=== PATIENT | female | born 1970 | race Caucasian/White ===

== ENCOUNTER 2023-10-02 11:30 | Emergency (ER) | payer OTHER ==
--- NOTE | 2023-10-02 12:58 | RAD REPORT ---
EXAM DESCRIPTION: RAD - Wrist Left 3 View - 10/02/2023 12:48 pm CLINICAL HISTORY: PAIN Pain COMPARISON: No comparisons FINDINGS: No fracture or dislocation seen. No foreign body or other soft tissue abnormality. IMPRESSION: Negative examination.
--- NOTE | 2023-10-02 13:15 | EDPHYS ---
Physician Documentation [facility] Name: Tayler Ziegler Age: 52 yrs Sex: Female : 1970 Arrival Date: 10/02/2023 Time: 11:30 Bed 12 Private MD: ED Physician Rudolph Ward HPI: 10/01 13:07 This 52 yrs old Female presents to ER via Ambulatory with complaints of Fall mai Injury. 13:07 Details of fall: The patient fell from an upright position, while walking. Onset: The mai symptoms/episode began/occurred 3 day(s) ago. Associated injuries: The patient sustained left wrist, decreased range of motion, painful injury. Severity of symptoms: At their worst the symptoms were mild, moderate, in the emergency department the symptoms are unchanged. The patient has not experienced similar symptoms in the past. Historical: - Allergies: 11:47 PENICILLINS; iw 11:47 Biaxin; iw 11:47 Stadol; iw - PMHx: 11:48 breast cancer; uterine cancer; lung cancer; iw - Immunization history:: Adult Immunizations up to date. - Infectious Disease History:: Denies. - Social history:: Smoking status: . - Family history:: not pertinent. ROS: 13:07 Constitutional: Negative for fever, chills, and weight loss, Eyes: Negative for injury, mai pain, redness, and discharge, ENT: Negative for injury, pain, and discharge, Neck: Negative for injury, pain, and swelling, Cardiovascular: Negative for chest pain, palpitations, and edema, Respiratory: Negative for shortness of breath, cough, wheezing, and pleuritic chest pain, Abdomen/GI: Negative for abdominal pain, nausea, vomiting, diarrhea, and constipation, Back: Negative for injury and pain, : Negative for injury, bleeding, discharge, and swelling, Skin: Negative for injury, rash, and discoloration, Neuro: Negative for headache, weakness, numbness, tingling, and seizure, Psych: Negative for depression, anxiety, suicide ideation, homicidal ideation, and hallucinations, Allergy/Immunology: Negative for hives, rash, and allergies, Endocrine: Negative for neck swelling, polydipsia, polyuria, polyphagia, and marked weight changes, Hematologic/Lymphatic: Negative for swollen nodes, abnormal bleeding, and unusual bruising, 13:07 MS/extremity: Positive for decreased range of motion, pain, swelling, tenderness, of the left wrist, Exam: 13:07 Constitutional: This is a well developed, well nourished patient who is awake, alert, mai and in no acute distress. Head/Face: Normocephalic, atraumatic. Eyes: Pupils equal round and reactive to light, extra-ocular motions intact. Lids and lashes normal. Conjunctiva and sclera are non-icteric and not injected. Cornea within normal limits. Periorbital areas with no swelling, redness, or edema. ENT: Nares patent. No nasal discharge, no septal abnormalities noted. Tympanic membranes are normal and external auditory canals are clear. Oropharynx with no redness, swelling, or masses, exudates, or evidence of obstruction, uvula midline. Mucous membranes moist. Neck: Trachea midline, no thyromegaly or masses palpated, and no cervical lymphadenopathy. Supple, full range of motion without nuchal rigidity, or vertebral point tenderness. No Meningismus. Chest/axilla: Normal chest wall appearance and motion. Nontender with no deformity. No lesions are appreciated. Cardiovascular: Regular rate and rhythm with a normal S1 and S2. No gallops, murmurs, or rubs. Normal PMI, no JVD. No pulse deficits. Respiratory: Lungs have equal breath sounds bilaterally, clear to auscultation and percussion. No rales, rhonchi or wheezes noted. No increased work of breathing, no retractions or nasal flaring. Abdomen/GI: Soft, non-tender, with normal bowel sounds. No distension or tympany. No guarding or rebound. No evidence of tenderness throughout. Back: No spinal tenderness. No costovertebral tenderness. Full range of motion. Skin: Warm, dry with normal turgor. Normal color with no rashes, no lesions, and no evidence of cellulitis. Neuro: Awake and alert, GCS 15, oriented to person, place, time, and situation. Cranial nerves II-XII grossly intact. Motor strength 5/5 in all extremities. Sensory grossly intact. Cerebellar exam normal. Normal gait. Psych: Awake, alert, with orientation to person, place and time. Behavior, mood, and affect are within normal limits. 13:07 Musculoskeletal/extremity: Extremities: grossly normal except: noted in the left wrist: decreased ROM, pain, tenderness, Vital Signs: 11:47 BP 116 / 93; Pulse 85; Resp 16; Temp 98.2; Pulse Ox 100% on R/A; iw MDM: 11:35 Patient medically screened. mai 13:10 Differential diagnosis: contusion, fracture, sprain, strain. Data reviewed: vital mai signs, nurses notes, radiologic studies, plain films. Consideration of Admission/Observation Escalation of care including admission/observation considered. I considered the following discharge prescriptions or medication management in the emergency department Medications were administered in the Emergency Department. See MAR. Independent interpretation of the following test(s) in the Emergency Department X-Ray: My interpretation is no fracture. Test considered but Not performed: Labs: no labs. Historians other than the Patient: Family Member: family well informed. Care significantly affected by the following chronic conditions: Cancer, breast, uterine, lung. Counseling: I had a detailed discussion with the patient and/or guardian regarding the historical points, exam findings, and any diagnostic results supporting the discharge/admit diagnosis, radiology results, the need for outpatient follow up, for definitive care, a family practitioner, a orthopedic surgeon. 10/01 12:14 Order name: Wrist Left (3 View) XRAY [facility] 10/01 12:14 Order name: Ice pack; Complete Time: 12:23 [facility] 10/01 13:06 Order name: Splint - Wrist: cock up; Complete Time: 13:19 mai Administered Medications: 13:30 Drug: Ibuprofen PO 600 mg PO once Route: PO; cp4 13:30 Follow up: Response: No adverse reaction cp4 13:30 Drug: Hydrocodone-Acetaminophen PO (7.5 mg-325 mg) 1 tabs PO once Route: PO; cp4 13:30 Follow up: Response: No adverse reaction cp4 Disposition Summary: 10/02/23 13:15 Discharge Ordered Notes: Location: Home mai Problem: new mai Symptoms: have improved mai Condition: Stable mai Diagnosis - Fall on same level, unspecified mai - Sprain of radiocarpal joint of left wrist mai - Sprain of carpal joint of left wrist mai Followup: mai - With: Private Physician - When: 2 - 3 days - Reason: Recheck today's complaints, Continuance of care, Re-evaluation by your physician Followup: mai - With: Leonidas Luong MD - When: 2 - 3 days - Reason: Recheck today's complaints, Re-evaluation by your physician Discharge Instructions: - Discharge Summary Sheet mai - Wrist Pain, Adult mai - Wrist Pain, Adult, Enby-cf-Ilwi mai - Fall Prevention in the Home, Adult, [id number] mai - Wrist Sprain, Adult mai Forms: - Medication Reconciliation Form mai - Antibiotic Education mai - Prescription Opioid Use mai - Patient Portal Instructions mai - Leadership Thank You Letter [facility] Prescriptions: - diclofenac sodium 50 mg Oral tablet, delayed release (enteric coated) - take 1 tablet ORAL route every 8 hours as needed for pain; 21 tablet; Refills: mai 0, Product Selection Permitted Signatures: Dispatcher [employer] EDRudolph Santos MD MD cha Williams, Irene, RN RN Promise Frausto cp4 Corrections: (The following items were deleted from the chart) 11:48 11:47 Allergies: Tetanus Vaccines \T\ Toxoid; greg garza
--- NOTE | 2023-10-02 13:15 | ER ---
Nurse's Notes [facility] Name: Tayler Ziegler Age: 52 yrs Sex: Female : 1970 Arrival Date: 10/02/2023 Time: 11:30 Bed 12 Private MD: Diagnosis: Fall on same level, unspecified;Sprain of radiocarpal joint of left wrist;Sprain of carpal joint of left wrist Presentation: 10/01 11:46 Chief complaint: Patient states: fell with walker, ran into a curb, fell on left wrist iw , happened . 11:46 Acuity: JESSICA 4 iw 11:47 Coronavirus screen: At this time, the client does not indicate any symptoms associated iw with coronavirus-19. Ebola Screen: Patient negative for fever greater than or equal to 101.5 degrees Fahrenheit, and additional compatible Ebola Virus Disease symptoms Patient denies exposure to infectious person. Patient denies travel to an Ebola-affected area in the 21 days before illness onset. No symptoms or risks identified at this time. Initial Sepsis Screen: Does the patient meet any 2 criteria? No. Patient's initial sepsis screen is negative. Does the patient have a suspected source of infection? No. Patient's initial sepsis screen is negative. Risk Assessment: Do you want to hurt yourself or someone else? Patient reports no desire to harm self or others. Onset of symptoms was September 27, 2023. 11:47 Method Of Arrival: Ambulatory iw Historical: - Allergies: 11:47 PENICILLINS; iw 11:47 Biaxin; iw 11:47 Stadol; iw - PMHx: 11:48 breast cancer; uterine cancer; lung cancer; iw - Immunization history:: Adult Immunizations up to date. - Infectious Disease History:: Denies. - Social history:: Smoking status: . - Family history:: not pertinent. Screenin:53 [facility] ED Fall Risk Assessment (Adult) History of falling in the last 3 months, cp4 including since admission Yes- single mechanical fall (1 pt) Confusion or Disorientation No (0 pts) Intoxicated or Sedated No (0 pts) Impaired Gait No (0 pts) Mobility Assist Device Used No (0 pt) Altered Elimination No (0 pt) Score/Fall Risk Level 0 - 2 = Low Risk Oriented to surroundings, Maintained a safe environment, Assessed \T\ reinforced patient's understanding of fall precautions, Hourly rounding (assess needs \T\ fall precautionary measures) done. Abuse screen: Denies threats or abuse. Nutritional screening: No deficits noted. Tuberculosis screening: No symptoms or risk factors identified. Assessment: 11:51 General: Appears uncomfortable, Behavior is calm, cooperative, appropriate for age. cp4 11:53 Pain: Complains of pain in left wrist. cp4 Vital Signs: 11:47 BP 116 / 93; Pulse 85; Resp 16; Temp 98.2; Pulse Ox 100% on R/A; iw ED Course: 11:30 Patient arrived in ED. rg4 11:35 Rudolph Ward MD is Attending Physician. [facility] 11:47 Triage completed. 11:48 Arm band placed on. iw 11:51 Promise Ramirez is Primary Nurse. cp4 11:53 Bed in low position. Call light in reach. Side rails up X 1. Provided Education on: cp4 falls. 12:50 Wrist Left (3 View) XRAY In Process Unspecified. EDDE 13:14 Leonidas Luong MD is Referral Physician. [facility] 13:20 No provider procedures requiring assistance completed. Patient did not have IV access cp4 during this emergency room visit. Administered Medications: 13:30 Drug: Ibuprofen PO 600 mg PO once Route: PO; cp4 13:30 Follow up: Response: No adverse reaction cp4 13:30 Drug: Hydrocodone-Acetaminophen PO (7.5 mg-325 mg) 1 tabs PO once Route: PO; cp4 13:30 Follow up: Response: No adverse reaction cp4 Medication: 11:53 VIS not applicable for this client. cp4 Outcome: 13:15 Discharge ordered by . mai 13:20 Discharged to home ambulatory, cp4 13:20 Condition: stable 13:20 Discharge instructions given to patient, Instructed on discharge instructions, follow up and referral plans. Demonstrated understanding of instructions, follow-up care, 13:30 Patient left the ED. cp4 Signatures: Dispatcher [employer] Rudolph Sahni MD MD cha Williams, Irene, Ana Ellis RN rg4 Promise Ramirez cp4 Corrections: (The following items were deleted from the chart) 11:48 11:47 Allergies: Tetanus Vaccines \T\ Toxoid; [facility]
[2023-10-02] MEDS ORDERED: HYDROCODONE/APAP 7.5/325 MG TAB ONE (13:22)
[2023-10-02] MEDS ORDERED: IBUPROFEN 200 MG TAB PO ONE (13:22)
[2023-10-02 13:48] VITALS: BP 116/93; TEMP 98.2; O2SAT 100
== END 2023-10-02 13:30 | disposition home or self-care (01) ==
LOC: ER 11:30
DX: S63.522A Sprain of radiocarpal joint of left wrist, initial encounter (principal); S63.512A Sprain of carpal joint of left wrist, initial encounter; Z88.0 Allergy status to penicillin; Z88.5 Allergy status to narcotic agent; Z88.6 Allergy status to analgesic agent
CPT/HCPCS: 99283

== ENCOUNTER 2024-04-01 15:51 | Emergency (ER) | payer OTHER ==
--- OUTSIDE RECORDS SUMMARY | 2024-04-01 15:54 | XMS REPORT | Clinical Summary ---
Author Name Unknown Organization [facility] Address [address] [place] [address] Care Team Providers Care Helpdesk Analyst Name Role Phone Kimberly Tsang MD Unavailable [phone] Greg Singletary DMD Primary Care Provider [phone] Encounters Date Type Department Care Team Description 09/20/2023 Documentation [facility] - [facility] [address] [facility] [address] [facility], 10th Floor, [place] [address] Mariola Nieto, RN navigation 09/17/2023 Documentation [facility] [place] - Surgical Oncology [address] [facility] [address], 10th Floor, [place] [address] Mariola Nieto, RHEA End Navigation after 04/02/2023 Social History Tobacco Use Types Packs/Day Years Used Date Smoking Tobacco: Never Assessed Sex and Gender Information Value Date Recorded Sex Assigned at Female 09/17/2023 12:26 PM CDT Gender Identity Female 09/17/2023 12:26 PM CDT Sexual Orientation Straight 09/17/2023 12 :26 PM CDT Job Start Date Occupation Industry Not on file Not on file Not on file Plan of Treatment Health Maintenance Due Date Last Done Comments COVID-19 Vaccine (2023-2 5 season) 2024 02/25/2021, 01/28/2021 Influenza Vaccine (#1) 2024 Pneumococcal Vaccine: Pediatrics (0 to 5 Years) and At-Risk Patients (6 to 64 Years) Aged Out No longer eligible b ased on patient's age to complete this topic Care Teams Helpdesk Analyst Relationship Specialty Start Date End Date Kimberly Tsang MD [address] [place] [phone] PCP - External Primary Care Provider 09/17/23 Greg Singletary DMD [address] [place] [id number] [email or web address] PCP - General Dental Oncology 09/17/23
--- NOTE | 2024-04-01 18:56 | RAD REPORT ---
EXAMINATION: XR Tib Fib Right CLINICAL INDICATION: Female, 53 years old. PAIN TECHNIQUE: 2 view radiograph of the right tibia and fibula were obtained. COMPARISON: No prior exam. FINDINGS: No evidence of fracture or dislocation. Normal alignment. No evidence of arthropathy or oth er focal bone lesion. Soft tissues are unremarkable. IMPRESSION: No acute or significant abnormalities.
--- NOTE | 2024-04-01 18:56 | RAD REPORT ---
EXAM: XR Knee Left 3 View HISTORY: BR MAIN PAIN Bed: COMPARISON: None TECHNIQUE: 3 views of the left knee were obtained. FINDINGS: No knee effusion is seen. There is no evidence of acute fracture or dislocation. Mild dege nerative changes. Enthesopathy at the quadriceps tendon attachment. No soft tissue swelling or other soft tissue abnormality is present. IMPRESSION: No evidence of acute osseous abnormality. Chronic findings as above.
--- NOTE | 2024-04-01 19:03 | EDPHYS ---
Physician Documentation [facility] Name: Tayler Ziegler Age: 53 yrs Sex: Female : 1970 Arrival Date: 04/01/2024 Time: 15:51 Bed 18 Private MD: ED Physician Oli Rodriguez HPI: 04/01 16:17 This 53 yrs old Female presents to ER via Unassigned with complaints of Fall Injury. kb 16:17 Pt is a 53 year old female who presents for bilateral knee pain after a fall that kb occurred earlier today. States she lifted her walker over a hump and didn't clear it so she fell to her knees. Denies any other injuries. . Historical: - Allergies: 16:25 Biaxin; jb4 16:25 PENICILLINS; jb4 16:25 Stadol; jb4 - PMHx: 16:25 breast cancer; Lung Cancer; uterine cancer; jb4 - PSHx: 16:25 total hysterectomy (uterine cancer); Double mastectomy (uterine cancer); Abdominal jb4 surgery (uterine cancer); - Immunization history:: Adult Immunizations up to date. - Infectious Disease History:: Denies. - Social history:: Smoking status: Patient denies any tobacco usage or history of. ROS: 16:20 Constitutional: As per HPI kb Exam: 16:20 Constitutional: This is a well developed, well nourished patient who is awake, alert, kb and in no acute distress. Head/Face: Normocephalic, atraumatic. ENT: Moist Mucous membranes Cardiovascular: Regular rate Respiratory: Respirations even and unlabored. No increased work of breathing. Talking in full sentences Skin: Warm, dry with normal turgor. Normal color. Neuro: Awake and alert, GCS 15, oriented to person, place, time, and situation. 16:20 Musculoskeletal/extremity: Extremities: grossly normal except: noted in the left knee: pain, noted in the right knee and right yang: pain, tenderness, ROM: intact in all extremities, Circulation is intact in all extremities. Sensation intact. Weight bearing: can bear weight with assistance only, uses walker, Vital Signs: 16:23 BP 112 / 81; Pulse 84; Resp 16; Temp 98.5(O); Pulse Ox 100% on R/A; Weight 89.36 kg jb4 (R); Height 5 ft. 7 in. (R); 17:00 BP 124 / 74; Pulse 90; Resp 18; Temp 98.2; Pulse Ox 97% on R/A; Pain 8/10; ar6 19:05 BP 115 / 96; Pulse 98; Resp 18; Pulse Ox 100% on R/A; ar6 16:23 Body Mass Index 30.85 (89.36 kg, 170.18 cm) jb4 17:00 Pain Scale: Adult ar6 MDM: 16:01 Medical Screening Exam initiated kb 16:20 Differential diagnosis: contusion, fracture, sprain. Data reviewed: vital signs, nurses kb notes. 19:02 Counseling: I had a detailed discussion with the patient and/or guardian regarding the kb historical points, exam findings, and any diagnostic results supporting the discharge/admit diagnosis, radiology results, the need for outpatient follow up, a family practitioner, to return to the emergency department if symptoms worsen or persist or if there are any questions or concerns that arise at home. 04/01 16:19 Order name: Tib Fib Right XRAY; Complete Time: 18:57 kb 04/01 16:19 Order name: Knee Left 3 View XRAY; Complete Time: 18:57 kb 04/01 16:21 Order name: Ice pack; Complete Time: 17:15 kb Administered Medications: No medications were administered Disposition Summary: 04/01/24 19:02 Discharge Ordered Notes: Location: Home kb Condition: Stable kb Diagnosis - Pain in left knee kb - Pain in right leg kb Followup: kb - With: Emergency Department - When: As needed - Reason: Worsening of condition Followup: kb - With: Private Physician - When: 2 - 3 days - Reason: Recheck today's complaints, Continuance of care, Re-evaluation by your physician Discharge Instructions: - Discharge Summary Sheet kb - Musculoskeletal Pain kb Forms: - Medication Reconciliation Form kb - Antibiotic Education kb - Prescription Opioid Use kb - Patient Portal Instructions kb - Leadership Thank You Letter kb Signatures: Dispatcher [employer] Nelda Ureña, BUSSER-C BUSSER-Bright Jimenez, RN RN jb4 Corrections: (The following items were deleted from the chart) 16:20 16:20 Tib Fib Right+RAD.RAD.BRZ ordered. EDMT EDMT 16:20 16:20 Knee Left 3 View+RAD.RAD.BRZ ordered. EDMS EDMS
--- NOTE | 2024-04-01 19:03 | ER ---
Nurse's Notes [facility] Name: Tayler Ziegler Age: 53 yrs Sex: Female : 1970 Arrival Date: 04/01/2024 Time: 15:51 Bed 18 Private MD: Diagnosis: Pain in left knee;Pain in right leg Presentation: 04/01 16:23 Chief complaint: Patient states: I was trying to get my walker over the curve and I did jb4 not clear it. I hit the curve and fell landing on knees. My right knee hurts the worst. Coronavirus screen: At this time, the client does not indicate any symptoms associated with coronavirus-19. Ebola Screen: No symptoms or risks identified at this time. Initial Sepsis Screen: Does the patient meet any 2 criteria? No. Patient's initial sepsis screen is negative. Does the patient have a suspected source of infection? No. Patient's initial sepsis screen is negative. Risk Assessment: Do you want to hurt yourself or someone else? Patient reports no desire to harm self or others. Onset of symptoms was April 01, 2024. Transition of care: patient was not received from another setting of care. 16:23 Method Of Arrival: Wheelchair jb4 16:23 Acuity: JESSICA 4 jb4 Triage Assessment: 16:26 General: Appears in no apparent distress. comfortable, Behavior is calm, cooperative, jb4 appropriate for age. Pain: Complains of pain in right knee Pain does not radiate. Pain currently is 8 out of 10 on a pain scale. Neuro: Level of Consciousness is awake, alert, obeys commands, Oriented to person, place, time, situation. Cardiovascular: Patient's skin is warm and dry. Respiratory: Airway is patent Respiratory effort is even, unlabored, Respiratory pattern is regular, symmetrical. Derm: Skin is intact, Skin is pink, warm \T\ dry. Musculoskeletal: Circulation, motion, and sensation intact. Range of motion: intact in all extremities. Historical: - Allergies: 16:25 Biaxin; jb4 16:25 PENICILLINS; jb4 16:25 Stadol; jb4 - PMHx: 16:25 breast cancer; Lung Cancer; uterine cancer; jb4 - PSHx: 16:25 total hysterectomy (uterine cancer); Double mastectomy (uterine cancer); Abdominal jb4 surgery (uterine cancer); - Immunization history:: Adult Immunizations up to date. - Infectious Disease History:: Denies. - Social history:: Smoking status: Patient denies any tobacco usage or history of. Screenin:00 [facility] ED Fall Risk Assessment (Adult) History of falling in the last 3 months, ar6 including since admission Yes- single mechanical fall (1 pt) Confusion or Disorientation No (0 pts) Intoxicated or Sedated No (0 pts) Impaired Gait Yes (1 pt) Mobility Assist Device Used Yes (1 pt) Altered Elimination No (0 pt) Score/Fall Risk Level 3 or more points = High Risk Oriented to surroundings, Maintained a safe environment, Educated pt \T\ family on fall prevention, incl call for assistance when getting out of bed, Hourly rounding (assess needs \T\ fall precautionary measures) done, Used ambulatory aids as needed (educated on \T\ assisted with), Offered frequent toileting (1:1 observation), Utilized family, sitter, or virtual nuclear plant instrument technician as indicated. Abuse screen: Denies threats or abuse. Denies injuries from another. Nutritional screening: No deficits noted. Tuberculosis screening: No symptoms or risk factors identified. Assessment: 17:00 General: Appears in no apparent distress. uncomfortable, Behavior is calm, cooperative. ar6 Pain: Complains of pain in right leg and left leg Pain currently is 8 out of 10 on a pain scale. Neuro: Level of Consciousness is awake, alert, obeys commands, Oriented to person, place, time, situation. Cardiovascular: Capillary refill < 3 seconds. Respiratory: Airway is patent. GI: Abdomen is round non-distended. : No signs and/or symptoms were reported regarding the genitourinary system. EENT: Oral mucosa is moist. Derm: Skin is intact, is healthy with good turgor, Skin is dry, Skin is pink, warm \T\ dry. Musculoskeletal: Swelling absent mild swelling to bilateral knees with slight redness. Vital Signs: 16:23 BP 112 / 81; Pulse 84; Resp 16; Temp 98.5(O); Pulse Ox 100% on R/A; Weight 89.36 kg jb4 (R); Height 5 ft. 7 in. (R); 17:00 BP 124 / 74; Pulse 90; Resp 18; Temp 98.2; Pulse Ox 97% on R/A; Pain 8/10; ar6 19:05 BP 115 / 96; Pulse 98; Resp 18; Pulse Ox 100% on R/A; ar6 16:23 Body Mass Index 30.85 (89.36 kg, 170.18 cm) jb4 17:00 Pain Scale: Adult ar6 ED Course: 15:54 Patient arrived in ED. mg5 15:56 Nel[facility]ero F[facility]-C [facility] kb 15:56 Oli Rodriguez MD is Attending Physician. kb 16:25 Triage completed. jb4 16:25 Arm band placed on left wrist. jb4 17:00 No apparent distress. Awaiting radiology results. ar6 17:00 Patient has correct armband on for positive identification. Bed in low position. Call ar6 light in reach. Side rails up X 1. Provided Education on: plan of care. Pulse ox on. NIBP on. Door closed. Lights dimmed. Moved to private room. Warm blanket given. 17:00 No provider procedures requiring assistance completed. ar6 17:15 Lamar Deras, RN is Primary Nurse. ar6 17:58 Tib Fib Right XRAY In Process Unspecified. EDMS 17:58 Knee Left 3 View XRAY In Process Unspecified. EDMS 19:19 Patient did not have IV access during this emergency room visit. ar6 Administered Medications: No medications were administered Medication: 17:00 VIS not applicable for this client. ar6 Outcome: 19:02 Discharge ordered by . kb 19:19 Discharged to home ambulatory, ar6 19:19 Condition: good 19:19 Discharge instructions given to patient, Instructed on discharge instructions, follow up and referral plans. Demonstrated understanding of instructions, follow-up care, 19:20 Patient left the ED. ar6 Signatures: Dispatcher [employer] EDMS Nelda Aguero FNP-C FNP-Ckb Bryson, James RN RN jbTheresa Bragg mg5 Lamar Deras, RN RN ar6
[2024-04-01 19:35] VITALS: TEMP 98.2
[2024-04-01 19:37] VITALS: BP 115/96; O2SAT 100
== END 2024-04-01 19:20 | disposition home or self-care (01) ==
LOC: ER 15:51
DX: M25.562 Pain in left knee (principal); M79.604 Pain in right leg; W18.30XA Fall on same level, unspecified, initial encounter